=== PATIENT | female | born 1975 | race African-American/Black ===

== ENCOUNTER 2018-10-06 22:28 | Emergency (ER) | payer OTHER, MEDICAID ==
[2018-10-06 22:36] VITALS: BP 132/78
--- NOTE | 2018-10-06 22:47 | EDPHY ---
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 She is concerned about body fluid exposure. Today with her hepatitis-B vaccine. She is unsure whether she received hepatitis a vaccine. Denies HIV history. PHYSICAL EXAM (Prior to examination, patient consented to physical exam, hands were washed and my usual and customary physical exam procedures followed) 1) GENERAL: Well-developed, well-nourished, alert and oriented. Appears to be in no acute distress. 2) HEAD: Normocephalic 3) HEENT: sclera anicteric . No irritation. 4) LUNGS: Breathing comfortably. 5) SKIN: No facial irritation or lesions Smoking Status: Current every day smoker Constitutional: Initial Vital Signs Temperature (C) 36.7 C 10/06/18 22:33 Heart Rate 75 10/06/18 22:33 Respiratory Rate 16 10/06/18 22:33 Blood Pressure 132/78 H 10/06/18 22:33 O2 Sat (%) 98 10/06/18 22:33 O2 Delivery Mode Room Air Allergies/Adverse Reactions: No Known Allergies Allergy (Unverified 10/06/18 22:33) Home Medications: Medication Instructions Recorded NK [No Known Home Meds] 04/22/16 MDM/Departure - MDM ED Course/Re-evaluation: 11:00 p.m.: Patient has expressed her high-level of anxiety to me repeatedly, concerned that she may have contracted given a communicable disease. she repeatedly requests post exposure prophylaxis. I explained to her about the low likelihood of a communicable disease given her urine exposure. I explained to her that I do not think the benefits outweigh the risks. I consulted with Infectious Disease Dr. Minerva Braxton at this time who agrees. She recommends that the patient not receive post exposure prophylaxis. Dr. Minerva Braxton agreed to follow up with patient a patient so desired. Patient would like to follow up at the [facility]. I have also recommend the patient follow up with her occupational health provider. Patient has been given this referral information. Care of patient under supervision of secondary supervising physician Dr Maciel Martin . - Depart Disposition: Home, Routine, Self-Care Clinical Impression: Patient exposure to body fluids Condition: Good Instructions: Postexposure Prophylaxis (ED) Stand Alone Forms: Work Comp Follow Up Referrals: Minerva Braxton MD [Medical Doctor] - 2-3 days, call for appt.
[2018-10-07 04:31] LABS: HEPATITIS C ANTIBODY TOTAL NEGATIVE (NEGATIVE); HIV TYPE 1 AND 2 NEGATIVE (NEGATIVE)
== END 2018-10-06 23:10 | disposition home or self-care (01) ==
DX: Z77.21 Contact with and (suspected) exposure to potentially hazardous body fluids (principal); Y99.0 Civilian activity done for income or pay
CPT/HCPCS: G0472